=== PATIENT | female | born 1955 | race Caucasian/White ===

== ENCOUNTER 2016-04-22 13:22 | Emergency (ER) ==
[2016-04-22] MEDS ORDERED: CATAPRES PO ONE (17:05)
[2016-04-22] MEDS ORDERED: ZOFRAN IV ONE (17:23)
[2016-04-22 17:41] LABS: MANUAL DIFF NEEDED? NO
[2016-04-22 17:43] LABS: BASO% 0.1 % (0.0-0.8); EOS# 0.01 X1000 (0.0-0.7); EOS% 0.1 % (0.0-10.0); HEMATOCRIT 37.4 % (37.0-47.0); HEMOGLOBIN 11.6 g/dL (12.0-16.0); LYMPH# 0.81 X1000 (1.2-3.4); LYMPH% 10.8 % (20.5-51.1); MCV 93.5 FL (81-99); MONO# 0.42 X1000 (0.11-0.59); MONO% 5.6 % (1.7-9.3); MPV 9.5 FL (7.4-10.4); NEUT% 83.4 % (42.2-75.2); PLT 407 X1000 (130-400)
--- NOTE | 2016-04-22 17:45 | PROVIDER DOCUMENTATION ---
HPI-Headache - General Source: patient - History of Present Illness-Headache Headache Location: reports: frontal Quality of Pain: reports: stabbing Severity: reports: moderate Onset/Duration: reports: abrupt, this morning Timing: reports: still present Headache Context: reports: other Headache History: reports: history of migraines (Told nurse last one was >1 year ago) Any recent trauma/injury?: reports: minor (Pt fell and hurt L side; reports no head or neck involvement). denies: to head, to neck Headache severity at the maximum: severe Preceding Symptoms: reports: none Headache Exacerbated by:: reports: light, noise, movement Modifying Factors: improves with: nothing Associated Symptoms: reports: nausea, vomiting Similar Symptoms Previously?: Yes (>1 year) <Ayala Eisenberg - Last Filed: 04/22/16 17:39> <Elis Wick - Last Filed: 04/22/16 19:31> - General Chief Complaint: Headache Stated Complaint: FALL Time Seen by Provider: 04/22/16 16:00 Allergies/Adverse Reactions: Patient Allergies Allergy/AdvReac Type Severity Reaction Status Date / Time No Known Allergies Allergy Verified 04/22/16 16:56 Home Medications: No Home Medications 04/22/16 - History of Present Illness-Headache Nature of Presenting Problem: 61 yo F presents to ED with cc of photosensitive frontal headache and accompanying nausea since 7 a.m. Pt reports 1 episode of vomiting prior to arrival. Pt states she fell twice yesterday and hurt her L side. Pt reports no LOC. Pt states she believes the fall and the headache are connected, but she reports no headache immediately following the fall and that she was able to go to work as usual today. Pt reports she was treated for HTN for approximately 1 year and that she has not been on any blood pressure medication for 1 year. Pt gave conflicting report to nurse, stating she only has high blood pressure when she is sick. Pt told nurse she has hx of migraines x 1 year though answered physician that she did not have migraine hx. (Ayala Eisenberg) Review of Systems - Adult - REVIEW OF SYSTEMS - ADULT Constitutional: reports: no symptoms reported. denies: chills, fever Eyes: reports: no symptoms reported. denies: discharge, dry eyes Ears, Nose, Mouth & Throat: reports: no symptoms reported. denies: ear pain, nose pain Cardiovascular: reports: no symptoms reported. denies: chest pain, edema Respiratory: reports: no symptoms reported. denies: cough, dyspnea on exertion Gastrointestinal: reports: nausea, vomiting Genitourinary: reports: no symptoms reported. denies: dysuria, discharge Musculoskeletal: reports: no symptoms reported. denies: bone pain, back pain Integumentary: reports: no symptoms reported. denies: hives, itching Neurological: reports: headache/migraines Psychiatric: reports: no symptoms reported. denies: anxiety, anti-depressant use Endocrine: reports: no symptoms reported. denies: cold intolerance, heat intolerance Hematologic/Lymphatic: reports: no symptoms reported. denies: blood clots, easy bruising Allergic/Immunologic: reports: no symptoms reported. denies: allergic reactions , eczema All Other Systems: Reviewed and Negative <Ayala Eisenberg - Last Filed: 04/22/16 17:39> Past History - Adult - PAST MEDICAL HISTORY-ADULT Review of Records: reports: Old Records Reviewed, Nursing Assessment Review, Medications Reviewed Major Childhood Illnesses: reports: denies history Cardiovascular: reports: denies history Respiratory: reports: denies history Gastrointestinal: reports: denies history Obstetrical/Gynecological: reports: denies history Genitourinary: reports: denies history Musculoskeletal: reports: denies history Neurological: reports: denies history Endocrine/Immune: reports: denies history Other Conditions: reports: denies history - PRIOR SURGERIES/PROCEDURES Surgical/Procedure History: reports: cholecystectomy, hysterectomy, BTL, tonsillectomy, other (D&C) - IMMUNIZATION STATUS Childhood Immunizations: See Nurse Assessment Flu Vaccine: See Nurse Assessment - FAMILY HISTORY Family History: reviewed, not pertinent <Ayala Eisenberg - Last Filed: 04/22/16 17:39> Physical Exam- Neurological - Physical Exam-Neuro Initial Vital Signs Reviewed: Yes General Appearance: appears well, alert, no apparent distress HENMT: normocephalic/atraumatic, moist mucous membranes Head Injury: no evidence of injury Neck: non-tender, full range of motion Respiratory: chest non-tender, no accessory muscle use Cardiovascular: normal peripheral pulses, regular rate, rhythm Abdominal Exam: normal bowel sounds, non tender Lymphatic: no adenopathy Extremity: 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, 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 Exam: normal hearing, normal speech, PERRL Motor/Sensory: no motor deficit, no sensory deficit Neurologic: grossly normal, no motor/sensory deficits Integumentary: normal color, normal turgor, warm/dry Psych/Mental Status: normal mood/affect, normal thought content, normal thought process, oriented x 3 - Glascow Coma Scale Best Eye Response: (4) open spontaneously Best Verbal Response: (5) oriented Best Motor Response: (6) obeys commands <Ayala Eisenberg - Last Filed: 04/22/16 17:39> Progress <Ayala Eisenberg - Last Filed: 04/22/16 17:39> - REASSESSMENT Reassessment #1 Time Reassessed: 19:28 Status: improving Reassessment Comment: pain resolved - XRAY 1 XRAY Study: Chest Impression: Normal XRAY Interpretation: negative left ribs: Dr. Garcia - CT/MRI 1 CT Study: Head Impression: Normal CT Results: negative head <Elis Wick - Last Filed: 04/22/16 19:31> - PLAN OF CARE/RESULTS Progress/Plan/Lab Results: plan of care: imaging, labs, medications 1909: Pain medications ordered due to pain Orders Category Date Time Status HEAD W/O CONTRAST [CT] Stat Exams 04/22/16 17:58 Draft RIBS UNILAT W/PA CHEST LEFT [RAD] Stat Exams 04/22/16 17:57 Taken CBC WITH ELECTRONIC DIFF [HEME] Stat Lab 04/22/16 16:40 Completed CMP [COMPREHENSIVE METABOLIC PANEL] [CHEM] Stat Lab 04/22/16 16:40 Completed UA NIMS W/REFLEX CULT [URINALYSIS] Stat Lab 04/22/16 18:20 Completed Clonidine [Catapres] Med 04/22/16 17:05 Discontinued 0.3 mg PO NOW ONE Hydromorphone [Dilaudid] Med 04/22/16 19:10 Discontinued 1 mg IV NOW ONE Nicardipine 20 mg/D5w [Cardene 20 mg/D5w] 200 ml Med 04/22/16 18:00 Active IV As Directed Ondansetron [Zofran] Med 04/22/16 17:23 Discontinued 4 mg IV NOW ONE Prochlorperazine [Compazine] Med 04/22/16 19:09 Discontinued 10 mg IV NOW ONE Laboratory Tests 04/22/16 04/22/16 04/22/16 16:40 16:40 18:20 WBC 7.47 RBC 4.00 L Hgb 11.6 L Hct 37.4 MCV 93.5 MCH 29.0 MCHC 31.0 L RDW Std Deviation 16.2 H Plt Count 407 H MPV 9.5 Immature Gran % (Auto) 0.0 Neut % (Auto) 83.4 H Lymph % (Auto) 10.8 L [place] % (Auto) 5.6 Eos % (Auto) 0.1 Baso % (Auto) 0.1 Immature Gran # (Auto) 0.00 Neut # (Auto) 6.22 Lymph # (Auto) 0.81 L [place] # (Auto) 0.42 Eos # (Auto) 0.01 Baso # (Auto) 0.01 Sodium 142 Potassium 3.7 Chloride 101 Carbon Dioxide 27 Anion Gap 14 BUN 11 Creatinine 0.4 L Estimated GFR/1.73 m2 > 60 BUN/Creatinine Ratio 28 Glucose 138 H Calculated Osmolality 285 Calcium 9.0 Total Bilirubin 0.39 AST 15 ALT 13 Alkaline Phosphatase 88 Total Protein 7.5 Albumin 4.6 Globulin 2.9 Albumin/Globulin Ratio 1.6 Urine Source CLEAN CATCH Urine Color YELLOW Urine Turbidity CLEAR Urine pH 6.5 Ur Specific [place] 1.016 Urine Protein NEGATIVE Ur Glucose (Stick) 100 A Ur Ketones (Stick) TRACE A Urine Blood NEGATIVE Urine Nitrite NEGATIVE Urine Bilirubin NEGATIVE Urobilinogen Dipstick NORMAL Urine Leukocytes NEGATIVE Urine WBC (Auto) <10 Urine RBC (Auto) <10 U Epithel Cells (Auto) <10 Urine Bacteria (Auto) NEGATIVE Vital Signs - 24 hr 04/22/16 04/22/16 04/22/16 13:26 17:53 18:57 Temperature 97.5 F L Pulse Rate 95 H 99 H Respiratory 18 20 Rate Blood Pressure 214/104 188/100 198/92 O2 Sat by Pulse 100 95 Oximetry 04/22/16 19:10 Temperature Pulse Rate 102 H Respiratory 20 Rate Blood Pressure 170/77 O2 Sat by Pulse Oximetry Pt given results and will be d/c home w/o rx to follow up with PCP. Pt verbally understood instructions. PT remained clinically stable throughout the course of the ED stay and will return if symptoms worsen. (Elis Wick) Departure <Ayala Eisenberg - Last Filed: 04/22/16 17:39> - Departure Time of Disposition Order: 19:30 Certified Medical Emergency: Emergent <Elis Wick - Last Filed: 04/22/16 19:31> - Departure DIAGNOSIS: Hypertension Qualifiers: Hypertension type: essential hypertension Qualified Code(s): I10 - Essential ( primary) hypertension Migraine Qualifiers: Migraine type: unspecified Status migrainosus presence: without status migrainosus Intractability: not intractable Qualified Code(s): G43.909 - Migraine, unspecified, not intractable, without status migrainosus Disposition: HOME 01 Condition: Good Additional Instructions: Follow up with primary care doctor. Return to ED for any new or worsening symptoms. Establish care with a primary physician by calling the physician referral line below ED Follow Up Instructions: You have been treated by a care provider in the Emergency Department. These instructions are being provided to you so you can have an understanding of how to care for yourself upon discharge. Upon discharge from the Emergency Department, you are responsible for making arrangements for follow-up care by a physician of your choice. Take all prescribed medications as directed. Return to the Emergency Department immediately for any new or worsening symptoms. You may call the Physician Referral phone number at [phone] to obtain a list of Physicians who are taking new patients. Referrals: None,PCP [Primary Care Provider] - Attestation - Scribe Verification/Attestation Scribe:: Ayala Eisenberg Acting as Scribe for:: Delano Esquivel Scribe documention review:: This chart was documented by a scribe and accurately reflects the service the provider performed and the decisions made by the provider. - Physician/ Mid-level Attestation Patient care was provided by Mid-level provider (DESK REPORTER/PA):: No <Ayala Eisenberg - Last Filed: 04/22/16 17:39> - Scribe Verification/Attestation #2 Shift Change Time: 18:00 Scribe Name: Elis Wick Acting as Scribe for:: Nemesio Garcia <Elis Wick - Last Filed: 04/22/16 19:31> Physician Attestation - Physician Attestation I, the provider, attest to the following statement:: Nemesio Garcia Physician documentation Attestation:: This documentation recorded by the scribe accurately reflects the service I personally performed and the decisions made by me. <Elis Wick - Last Filed: 04/22/16 19:31>
[2016-04-22] MEDS ORDERED: NICARDIPINE IV SCH (18:00)
[2016-04-22] MEDS ORDERED: DEXTROSE IV SCH (18:00)
[2016-04-22 18:09] LABS: AGAP 14; ALBUMIN 4.6 g/dL (3.5-5.0); ALKALINE PHOSPHATASE 88 U/L (32-104); BUN 11 mg/dL (8-22); CHLORIDE 101 mmol/L (98-107); COSMO 285; GOT 15 U/L (10-30); GPT 13 U/L (10-36); POTASSIUM 3.7 mmol/L (3.5-5.1); SODIUM 142 mmol/L (136-145); TCO2 27 mmol/L (25-35); TOTAL BILIRUBIN 0.39 mg/dL (0.20-1.00); TOTAL PROTEIN 7.5 g/dL (6.3-8.3)
[2016-04-22 18:56] LABS: URINE CULTURE NEEDED? NO; URINE MICRO REVIEW NEEDED? NO; URINE SOURCE CLEAN CATCH
[2016-04-22 19:02] LABS: BILIRUBIN URINE NEGATIVE (NEGATIVE); BLOOD URINE NEGATIVE (NEGATIVE); COLOR YELLOW; GLUCOSE URINE 100 mg/dL (NEGATIVE); LEUKOCYTES URINE NEGATIVE (NEGATIVE); NITRITE URINE NEGATIVE (NEGATIVE); PH URINE 6.5; PROTEIN URINE NEGATIVE (NEGATIVE); SP GRAVITY URINE 1.016; TURBIDITY URINE CLEAR (CLEAR); UROBILINOGEN URINE NORMAL (NORMAL)
[2016-04-22 19:06] LABS: UR EPITHELIAL CELLS <10 /HPF (<10); URINE BACTERIA NEGATIVE /HPF; URINE RBC <10 /HPF (<10); URINE WBC <10 /HPF (<10)
[2016-04-22] MEDS ORDERED: COMPAZINE IV ONE (19:09)
[2016-04-22] MEDS ORDERED: DILAUDID IV ONE (19:10)
--- NOTE | 2016-04-22 19:21 | Diag Imaging Result Document ---
PROCEDURE NAME: HEAD W/O CONTRAST - 04/22/[address]: 04/22/2016. COMPARISON: None. FINDINGS: The ventricles and sulci are normal in size and contour. There is no mass, hemorrhage, or evidence of acute ischemia. The bony calvaria is intact. The visualized paranasal sinuses and mastoid air cells are clear. IMPRESSION: Negative head CT.
[2016-04-22 20:07] VITALS: BP 153/83
--- NOTE | 2016-04-23 08:44 | Diag Imaging Result Document ---
PROCEDURE NAME: RIBS UNILAT W/PA CHEST LEFT - 04/22/2016 FRONTAL CHEST X-RAY AND 4 VIEWS OF THE LEFT-SIDED RIBS, 04/22/2016: COMPARISON: 08/01/2015. FINDINGS: Stable borderline cardiomegaly. Pulmonary vascularity is normal. The lungs appear clear. The left-sided ribs are grossly intact. IMPRESSION: No acute disease.
== END 2016-04-22 20:00 | disposition home or self-care (01) ==
LOC: ED 13:22
DX: G43.909 Migraine, unspecified, not intractable, without status migrainosus (principal); I10 Essential (primary) hypertension; R51 Headache; R11.2 Nausea with vomiting, unspecified; H53.149 Visual discomfort, unspecified; W19.XXXA Unspecified fall, initial encounter
CPT/HCPCS: 70450; 71101; 80053; 81001; 85025; 96374; 96375; J0780; J1170; J2405